=== PATIENT | male | born 1970 | race African-American/Black ===

== ENCOUNTER → 2016-12-04 | Outpatient (CLI) | payer BC ==
[~2016-12-04] MED LIST: ZESTORETIC PO
--- NOTE | ~2016-12-04 | EKG ---
PATIENT: CHRISTY JORDAN UNIT #: [id number] Ventricular Rate: 70 BPM Atrial Rate: 70 BPM P-R Interval: 156 ms QRS Duration: 96 ms Q-T Interval: 378 ms QTC Calculation(Bezet): 408 ms P Galt: 32 degrees Calculated R Galt: 2 degrees Calculated T Galt: -5 degrees Diagnosis Line: Normal sinus rhythm Diagnosis Line: Normal ECG Diagnosis Line: No previous ECGs available Diagnosis Line: Confirmed by MELA YAO MD ([id number]) on Diagnosis Line: 12/05/2016 4:38:53 PM INTERPRETING MD: ELIEZER
[2016-12-04 10:19] LABS: BUN/CREATININE RATIO 14.54; CALCIUM SERUM 9.5 mg/dL (8.4-10.2); CREATININE SERUM 1.1 mg/dL (0.6-1.4); GLOM FILT RATE Estimated 93.5 mL/min (>60); POTASSIUM 4.3 mmol/L (3.5-5.1)
== END | disposition home or self-care (01) ==
LOC: CAMB 08:39
PROVIDERS: Surgery
DX: Z01.818 Encounter for other preprocedural examination (principal); K43.9 Ventral hernia without obstruction or gangrene
CPT/HCPCS: 36415; 80048; 93005

== ENCOUNTER → 2016-12-12 | Day surgery (SDC) | payer BC ==
--- NOTE | ~2016-12-12 | OR ---
Unit #: [id number] #: [id number] Patient: CHRISTY JORDAN JR [id number] [address] [address] [id number] O MR#: [id number] NAME: CHRISTY JORDAN JR ROOM: Date of Procedure: 12/12/2016 Admission Date: 12/12/2016 Surgeon: Ricci Valladares M.D. : 1970 Attending Physician: Ricci Valladares M.D. Primary Care Physician: Emi Guadalupe M.D. OPERATIVE REPORT PREOPERATIVE DIAGNOSIS Incarcerated ventral hernia. POSTOPERATIVE DIAGNOSIS A 3 cm incarcerated ventral hernia, midline. PROCEDURES PERFORMED 1. Laparoscopic ventral hernia repair with a 6 inch Ventralight mesh. 2. Incarcerated ventral hernia. HOUSE MOVER Fan Mayes M.D. ANESTHESIA General anesthesia. ESTIMATED BLOOD LOSS Minimal. IV FLUIDS 800 crystalloid. COMPLICATIONS None. INDICATIONS FOR PROCEDURE The patient is a gentleman, who presents with incarcerated hernia. He presents for laparoscopic repair. DESCRIPTION OF PROCEDURE The patient was taken to the operating theater and placed in a supine position. General anesthesia was induced. The abdomen was prepped and draped. A 5-mm Optiview trocar was placed in the left upper quadrant without difficulty. The abdomen was insufflated to 15 mmHg with CO2. Under direct vision, I placed left lower quadrant 10 mm. The patient was found to have an incarcerated hernia. This was reduced with gentle traction revealing a 3 to 4 cm defect. I used a 6-inch Ventralight mesh. This was placed into the abdominal cavity, held in position with single-stranded Vicryl sutures, and the echo positioning system. I then secured this with a SorbaFix Tacker with each tack being 1.5 cm from previous tack. This covered the defect by at least 5 cm. I removed the Echo positioning device. Hemostasis was adequate. I cut the suture at skin level, pulled out the ports, and then closed with 4-0 Vicryl. The Unit #: [id number] #: [id number] Patient: CHRISTY JORDAN JR patient tolerated the procedure well and sent to recovery room in good condition. Dictated by... Karrie CardenasO/modl TD: 12/13/2016 04:32 JOB #: [id number] OPERATIVE REPORT Page 1 of 1 X Ricci Valladares MD PROCEDURE OPERATIVE NOTE
== END | disposition home or self-care (01) ==
LOC: CSUR 05:42
PROVIDERS: Surgery
PROC: 0WUF4JZ Supplement Abdominal Wall with Synthetic Substitute, Percutaneous Endoscopic Approach (ICD-10-PCS; principal; 2016-12-12 07:30)
DX: K43.6 Other and unspecified ventral hernia with obstruction, without gangrene (principal); I10 Essential (primary) hypertension; F17.200 Nicotine dependence, unspecified, uncomplicated
CPT/HCPCS: J0131; J0330; J0690; J1170; J1644; J1885; J2175; J2250; J2370; J2405; J2710; J3010